=== PATIENT | female | born 1975 | race Caucasian/White ===

== ENCOUNTER 2016-04-07 08:39 | Outpatient (CLI) | payer BC ==
[~2016-04-07] VITALS: Ht 162.6 cm; Wt 68.2 kg
[2016-04-07 09:23] VITALS: BP 168/99; PULSE 79
[2016-04-07] MEDS ORDERED: NEURONTIN300 MG/CAP PO ×2 (09:28→09:29)
[2016-04-07] MEDS ORDERED: MOBIC15 MG PO (09:29)
[2016-04-07] MEDS ORDERED: MASON NATURAL2000 IU PO (09:31)
[2016-04-07 10:55] VITALS: BP 147/87; PULSE 78
[2016-04-07 11:25] VITALS: BP 140/80; PULSE 77
[2016-04-07 12:12] LABS: CEREBROSPINAL TUBE #3; CSF APPEARANCE CLEAR; CSF COLOR COLORLESS
[2016-04-14 10:33] LABS: CSF,IGG 3.8 mg/dL (<=8.1)
[2016-04-14 10:35] LABS: IGG/ALBUMIN SERUM 0.35 (<=0.40)
[2016-04-14 10:52] LABS: ALBUMIN CSF 8.8 mg/dL (<=27.0); CSF IGG/ALBUMIN 0.43 (<=0.21); CSF SYNTHESIS RATE 9.39 mg/24 h (<=12); CSF-IGG INDEX 1.23 (<=0.85)
== END 2016-04-07 12:15 | disposition home or self-care (01) ==
LOC: COL.RAD 08:39
PROVIDERS: Psychiatry & Neurology Neurology
DX: G35 Multiple sclerosis (principal)